=== PATIENT | male | born 1980 | race Asian ===

== ENCOUNTER 2017-02-28 16:24 | Emergency (ER) | payer MEDICAID, OTHER ==
[~2017-02-28] VITALS: Ht 180.3 cm; Wt 103.4 kg
[2017-02-28 17:31] VITALS: BP 133/92
[2017-02-28] MEDS ORDERED: NORCO 5-325 TA1 EAC1 ORAL (18:17)
[2017-02-28] MEDS ORDERED: IBUPROFEN600 MG ORAL (18:17)
[2017-02-28 18:28] VITALS: BP 133/92
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
== END 2017-02-28 18:30 | disposition home or self-care (01) ==
LOC: EMR 17:25
DX: S02.2XXA Fracture of nasal bones, initial encounter for closed fracture (principal); S00.03XA Contusion of scalp, initial encounter; V43.52XA Car driver injured in collision with other type car in traffic accident, initial encounter; Y93.9 Activity, unspecified; Y92.410 Unspecified street and highway as the place of occurrence of the external cause; R42 Dizziness and giddiness
CPT/HCPCS: 70450; 70486; 99284